=== PATIENT | male | born 1965 | race Caucasian/White ===

== ENCOUNTER 2024-12-24 12:46 | Emergency (ER) | payer OTHER, SELFPAY ==
[2024-12-24 12:53] VITALS: BP 130/87
[2024-12-24 13:13] LABS: % Basophils 1.3 % (0-2); % Eosinophils 5.9 % (0-6); % Immature Granulocytes 0.3 % (0-0.5); % Lymphocytes 22.4 % (20.5-51.1); % Monocytes 11.8 % (1.7-9.3); % Neutrophils 58.3 % (42.2-75.2); Absolute Basophils 0.1 10^3/uL (0-0.2); Absolute Eosinophils 0.4 10^3/uL (0-0.7); Absolute Lymphocytes 1.4 10^3/uL (1.2-3.4); Absolute Monocytes 0.7 10^3/uL (0.1-0.6); Absolute Neutrophils 3.7 10^3/uL (1.4-6.5); Hematocrit 45.8 % (39.0-52.0); Hemoglobin 15.4 g/dL (13.0-18.0); Mean Corp Hgb Conc. 33.6 g/dL (33.0-37.0); Mean Corpuscular Hgb 29.8 pg (27.0-31.0); Mean Corpuscular Volume 88.6 fL (80.0-94.0); Mean Platelet Volume 9.5 fL (7.4-10.4); Nucleated Red Blood Cells % 0 % (-); Platelet Count 215 10^3/uL (130-400); Red Blood Cell Count 5.17 10^6/uL (4.70-6.10); Red Cell Dist. Width 13.7 % (11.5-14.5); White Blood Cell Count 6.3 10^3/uL (4.8-10.8)
[2024-12-24 13:43] LABS: ALT (SGPT) 48 U/L (0-50); AST (SGOT) 35 U/L (17-59); Albumin 4.1 g/dl (3.5-5.0); Alkaline Phosphatase 74 U/L (38-126); Blood Urea Nitrogen 13 mg/dl (9-20); Carbon Dioxide 25 mmol/L (22-30); Chloride 103 mmol/L (98-107); Glucose 91 mg/dl (70-99); Magnesium 2.3 mg/dl (1.6-2.3); Potassium 4.2 mmol/L (3.5-5.1); Sodium 136 mmol/L (135-145); Total Bilirubin 0.9 mg/dl (0.2-1.3); Total Protein 6.9 g/dl (6.3-8.2); eGFR > 60.00
[2024-12-24 14:11] LABS: TSH Reflex To Free T4 2.29 uIU/ml (0.47-4.68)
[2024-12-24 15:11] VITALS: BP 155/92
--- NOTE | 2024-12-24 16:18 | ED.GENMED ---
History of Present Illness
General
Chief Complaint: Heart Rate Problem
Source: patient
Exam Limitations: none
Time Seen by Provider: 12/24/24 15:32
History of Present Illness
History of Present Illness:
See MDM
Past History
Past History
ED Past Medical History: HTN
ED Past Surgical History: None
Social History
Tobacco: Non-smoker
Alcohol: None
Phy Exam
Physical Exam
Physical Exam:
See MDM
Course
Orders/Labs/Results
Orders:
Orders
12/24/24 12:47
ECG [Electrocardiogram (*1)] Urgent
Reason for Study: Palpitations
EKG- Treatment ONCE
12/24/24 13:04
Complete Blood Count/With Diff Urgent
Comprehensive Metabolic Panel Urgent
Magnesium Urgent
TSH Reflex To Free T4 Urgent
12/24/24 16:38
Troponin I Urgent
12/24/24 18:47
Metoprolol [Lopressor] 25 mg PO NOW STA
Abnormal Lab Results
12/24/24
13:04
Absolute Monos (auto) 0.7 H 10^3/uL
(0.1-0.6)
Monocytes % 11.8 H %
(1.7-9.3)
12/24/24 13:04
12/24/24 13:04
Vital Signs
Initial and Last Documented VS:
Initial Vital Signs
Temp Pulse Resp BP Pulse Ox
98.5 F 55 20 130/87 97
12/24/24 12:53 12/24/24 12:53 12/24/24 12:53 12/24/24 12:53 12/24/24 12:53
Last Documented Vital Signs
Temp Pulse Resp BP Pulse Ox
98.5 F 67 18 155/92 97
12/24/24 12:53 12/24/24 15:11 12/24/24 15:11 12/24/24 15:11 12/24/24 15:11
MDM/Problems Addressed
Differential Diagnosis Includes:
HPI and MDM Narrative:
59-year-old male presenting with palpitations for the past few weeks. Although he has a loop recorder, his pharmaceutical engineer has been dismissing his symptoms, per patient. He states that he is becoming somewhat winded with exertion but denies any chest
pain. He went to his PCP and was found to be in bigeminy and was sent to the emergency department for evaluation. On my exam, he is well-appearing nontoxic. He is sitting in bed comfortably. EKG confirms multiple PVCs. Blood work was already
performed showing no electrolyte abnormality.
Will obtain troponin and discuss case with cardiology whether or not to start beta-rosendo.
Patient states he is on Plavix due to prior stroke, lisinopril�HCTZ and statin
Physical exam
General: Well appearing and non-toxic
HEENT: protecting airway
Neck: appears supple
CV: No evidence of cyanosis. Regular rate, irregular rhythm
Resp: No accessory muscle use
Abd: Non-distended
Extremities: No deformities. No leg edema
Neuro: alert
Psych: Normal affect
Skin: Intact
Problems Addressed including Acute and Chronic Conditions affecting care:
1. Symptomatic palpitations
Acuity: acute
Prognosis: stable
Details: Appears to be in the setting of bigeminy. Electrolytes within normal limits. Will add Annie discussed case with cardiology
Updates
Troponin negative. Case discussed with cardiology. We discussed starting low-dose. Will place on cardiac callback tracker. Patient feels comfortable this plan and discharge
Differential Diagnosis (but not limited to): Symptomatic palpitations, acute coronary syndrome, hyperthyroidism
Testing considered: 2 troponin rule out but given duration of symptoms, doubt ACS if single troponin negative
Drug therapy (if applicable): OTC meds, please see d/c instruction regarding Rx drugs
Amount and/or Complexity of Data Reviewed
Clinical info obtained from: Patient
External data reviewed: N/A
Labs I independently reviewed (but not limited to): Electrolytes within normal limits
Radiology: N/A
Pulse Ox: not hypoxic
EKG independently reviewed: Sinus rhythm with frequent PVCs, left axis, no STEMI
Roll Cleaner: Sinus rhythm with PVCs
Critical Care: N/A
Risk of Complication:
Social Determinants of health: Good social support
Discussed with other providers: Cardiology
Escalation of Care includes Admit/Obs: After being observed in the Emergency Department, pt stable for discharge.
Occasional wrong word or 'sound a like' substitutions may have occurred due to the inherent limitations of voice recognition software. Read the chart carefully and recognize, using context, where substitutions have occurred.
*Critical Care Note
Total Time (30-74mins, 75-104mins- exclusive of procedures): Not Applicable
ED Attending Note
-
Portions of this chart may have been created with voice recognition software.� Occasional wrong word or��sound alike� substitutions may have occurred due to the inherent limitations of voice recognition software.
Discharge Plan
Departure
Patient Disposition: Home (Routine Discharge)
Date of Disposition: 12/24/24
Time of Disposition: 18:51
Patient with high blood pressure during this ER visit?: Yes
Discharge Problem:
Frequent PVCs
Instructions: Ventricular premature beats, Chest Pain CBC Follow Up
Prescriptions:
New
metoprolol succinate [Toprol XL] 25 mg tablet extended release 24 hr
25 mg PO DAILY Qty: 30 0RF
Referrals:
Emery Orozco DO [Family Provider] -
Travis Liu MD [Active] -
Activity Restrictions/Additional Instructions:
Please return for any worsening symptoms.
You may return at any time if you have further concerns.
Please follow up with your doctor at the first available appointment, preferably this week.
You were placed on the cardiac callback tracker. Someone from their office should call you in the next few days. If you do not hear from them in the next few days, please give them a call.
Thank you for choosing [facility].
Interventions
Interventions:
*Risk Screen - Suicide Last Done: 12/24/24 12:53
*General Assessment Last Done: 12/24/24 12:53
*Neglect/Abuse Screening Last Done: 12/24/24 12:53
ED- Cardiac Assessment Last Done: 12/24/24 16:49
ED- Pulmonary Assessment Last Done: 12/24/24 16:49
Discharge Date and Time
Print Language: BELARUSIAN
[2024-12-24 17:09] LABS: Troponin I < 0.012 ng/ml
[2024-12-24] MEDS: LOPRESSOR 25 MG PO (18:57)
== END 2024-12-24 19:16 | disposition home or self-care (01) ==
LOC: EMR 12:46
PROVIDERS: Emergency Medicine; EMERGENCY PHYSICIAN Student in an Organized Health Care Education/Training Program; FAMILY PHYSICIAN Family Medicine
DX: I49.3 Ventricular premature depolarization (principal); R03.0 Elevated blood-pressure reading, without diagnosis of hypertension; I10 Essential (primary) hypertension
CPT/HCPCS: 99284; 80053; 83735; 84443; 84484; 85025; 93005

== ENCOUNTER → 2025-01-09 07:13 | Outpatient (REF) | payer OTHER, SELFPAY | LOC: RCS 07:13 | PROVIDERS: ATTENDING PHYSICIAN Internal Medicine; FAMILY PHYSICIAN Family Medicine | DX: Z86.73 Personal history of transient ischemic attack (TIA), and cerebral infarction without residual deficits (principal); I10 Essential (primary) hypertension; E78.2 Mixed hyperlipidemia | CPT/HCPCS: 93306 ==

== ENCOUNTER → 2025-01-10 08:23 | Outpatient (REF) | payer OTHER, SELFPAY | LOC: HWRCS 08:23 | PROVIDERS: ATTENDING PHYSICIAN Internal Medicine; FAMILY PHYSICIAN Family Medicine | DX: Z86.73 Personal history of transient ischemic attack (TIA), and cerebral infarction without residual deficits (principal); I10 Essential (primary) hypertension; E78.2 Mixed hyperlipidemia | CPT/HCPCS: 78452; 93017; A9500; J2785 ==

== ENCOUNTER → 2025-01-16 10:58 | Outpatient (REF) | payer OTHER, SELFPAY | LOC: RCS 10:58 | PROVIDERS: ATTENDING PHYSICIAN Internal Medicine; FAMILY PHYSICIAN Family Medicine | DX: Z86.73 Personal history of transient ischemic attack (TIA), and cerebral infarction without residual deficits (principal); I49.3 Ventricular premature depolarization | CPT/HCPCS: 93225; 93226 ==